=== PATIENT | female | born 1985 | race Caucasian/White ===

== ENCOUNTER → 2019-05-18 17:21 | Outpatient (CLI) | payer OTHER, SELFPAY ==
[2019-05-18 19:29] LABS: Urine N gonorrhoeae NOT DETECTED
[2019-05-18 19:37] LABS: Urine Chlamydia NOT DETECTED
== END ==
PROVIDERS: Visit Provider Physician Assistant
DX: N89.8 Other specified noninflammatory disorders of vagina (principal); Z11.3 Encounter for screening for infections with a predominantly sexual mode of transmission
CPT/HCPCS: 87210; 87491; 87591